=== PATIENT | male | born 1950 | race Caucasian/White ===

== ENCOUNTER 2017-03-08 10:53 | Emergency (ER) | payer BC ==
[~2017-03-08] VITALS: Ht 177.8 cm; Wt 120.3 kg
[2017-03-08 13:00] VITALS: BP 195/86
== END 2017-03-08 13:26 | disposition home or self-care (01) ==
LOC: ED 10:53
DX: S42.001A Fracture of unspecified part of right clavicle, initial encounter for closed fracture (principal); I10 Essential (primary) hypertension; M54.2 Cervicalgia; X50.9XXA Other and unspecified overexertion or strenuous movements or postures, initial encounter; Y93.89 Activity, other specified; Y99.8 Other external cause status; Y92.89 Other specified places as the place of occurrence of the external cause
CPT/HCPCS: 36415; J2270; Q0162